=== PATIENT | male | born 1975 | race Hispanic/Latino ===

== ENCOUNTER 2024-04-24 20:07 | Inpatient (IN) | payer OTHER ==
[~2024-04-24] VITALS: Ht 185.4 cm; Wt 87.1 kg
[2024-04-24] MEDS: ACETAMINOPHEN 500 MG TABLET PO ONE ×2 (20:32→22:41)
[2024-04-24] MEDS: LACTATED RINGERS 1000ML 2,397 ML IV ONE (20:33)
[2024-04-24 20:37] LABS: RAPID GROUP A STREP negative (NEGATIVE)
[2024-04-24 20:39] LABS: BASOPHILS # (AUTO) 0.03 K/uL (0.00-0.20); BASOPHILS % (AUTO) 0.2 % (0.0-5.0); HEMATOCRIT 44.5 % (42-54); IMMATURE GRANULOCYTE ABSOLUTE 0.07 K/uL (0-1); LYMPHOCYTES # (AUTO) 1.7 K/uL (1.0-4.8); LYMPHOCYTES % (AUTO) 9.8 % (21.0-51.0); MEAN CORPUSCULAR HEMOGLOBIN 33.7 pg (27.0-33.0); MEAN CORPUSCULAR HGB CONC 37.1 g/dL (32.0-36.0); MEAN CORPUSCULAR VOLUME 90.8 fL (79-99); MONOCYTES # (AUTO) 1.5 K/uL (0.1-1.0); MONOCYTES % (AUTO) 8.4 % (3.0-13.0); NEUTROPHILS # (AUTO) 14.4 K/uL (1.8-7.7); NEUTROPHILS % (AUTO) 81.2 % (40.0-77.0); PLATELET COUNT (AUTO) 159 K/uL (130-400); RED CELL DISTRIBUTION WIDTH 13.1 % (11.0-15.5); WHITE BLOOD COUNT (AUTO) 17.8 K/uL (4.8-10.8)
[2024-04-24 20:46] LABS: COVID19 (SARS ANTIGEN RAPID) PRESUMPTIVE NEGATIVE (NEGATIVE)
[2024-04-24 20:47] LABS: INFLUENZA TYPE A Negative For Type A (NEGATIVE); INFLUENZA TYPE B Negative For Type B (NEGATIVE)
[2024-04-24] MEDS: CEFTRIAXONE 1G VIAL IVPB ONE (20:49)
[2024-04-24 20:52] LABS: INR 1.02 (0.85-1.15)
[2024-04-24 20:53] LABS: PARTIAL THROMBOPLASTIN TIME 33.9 SEC (26.3-35.5)
[2024-04-24 21:13] LABS: ALBUMIN 3.3 g/dL (3.5-5.0); BILIRUBIN,DIRECT 0.4 mg/dL (0.0-0.3)
[2024-04-24 21:15] LABS: POTASSIUM 2.8 mmol/L (3.5-5.1)
[2024-04-24] MEDS: KCL 20 MEQ ERTAB PO SCH (21:35)
[2024-04-24] MEDS: KCL 20 MEQ ERTAB PO ONE (21:35)
[2024-04-24 21:47] LABS: APPEARANCE,URINE CLEAR (CLEAR); BILIRUBIN,URINE NEGATIVE (NEGATIVE); COLOR,URINE YELLOW (YELLOW); GLUCOSE, URINE (UA) NEGATIVE (NEGATIVE); KETONES,URINE NEGATIVE (NEGATIVE); LEUKOCYTE ESTERASE ,URINE NEGATIVE Leu/uL (NEGATIVE); NITRATE,URINE NEGATIVE (NEGATIVE); OCCULT BLOOD,URINE SMALL (NEGATIVE); PROTEIN,URINE 30 mg/dL (NEGATIVE); UROBILINOGEN,URINE 0.2 mg/dL (0.2-1.0)
[2024-04-24] MEDS: MORPHINE 2 MG SYG IVP ONE (21:48)
[2024-04-24] MEDS: VANCOMYCIN KIT 1 GM/250 ML IV.KIT IV ONE (21:48)
[2024-04-24 21:50] LABS: ADD UA MICROSCOPIC YES
[2024-04-24 21:52] LABS: MUCUS,URINE RARE LPF (None Seen); WBC,URINE 0-1 /HPF (0-1)
[2024-04-24 21:53] LABS: AMPHET/METH SCREEN,URINE NEGATIVE (NEGATIVE); BARBITURATE SCREEN, URINE NEGATIVE (NEGATIVE); BENZODIAZEPINES SCREEN,URINE NEGATIVE (NEGATIVE); CANNABINOID SCREEN,URINE NEGATIVE (NEGATIVE); COCAINE SCREEN,URINE POSITIVE (NEGATIVE); OPIATE SCREEN,URINE NEGATIVE (NEGATIVE); PHENCYCLIDINE SCREEN,URINE NEGATIVE (NEGATIVE)
[2024-04-24] MEDS ORDERED: LOSA50TA64 PO (22:06)
[2024-04-24 22:40] VITALS: BP 150/99; PULSE 76; RESP 20; O2SAT 100
[2024-04-24] MEDS ORDERED: DiphenhydrAMINE HCL 50 MG/ML VIAL IV PRN (23:30)
[2024-04-24] MEDS ORDERED: FAMOTIDINE 20MG VIAL IV PRN (23:30)
[2024-04-24] MEDS ORDERED: DEXTROSE 50%-WATER 50 ML DISP.SYRIN IV PRN (23:30)
[2024-04-24] MEDS ORDERED: ACETAMINOPHEN 325 MG TAB PO PRN (23:30)
[2024-04-24] MEDS ORDERED: GUAIFENESIN-DM 200/20 MG 10 ML PO PRN (23:30)
[2024-04-24] MEDS ORDERED: LACTULOSE 20 GM/30 ML UDCUP PO PRN (23:30)
[2024-04-24] MEDS ORDERED: ZOLPIDEM TARTRATE 5 MG TAB PO PRN (23:30)
[2024-04-24] MEDS ORDERED: GLUCAGON 1MG KIT 1 MG ML IM PRN (23:30)
[2024-04-24] MEDS ORDERED: NITROGLYCERIN 0.4 MG SL TAB SL PRN (23:30)
[2024-04-24] MEDS ORDERED: POTASSIUM CHLORIDE 10% ELIXIR 20 MEQ/15 ML UDCUP PO PRN (23:30)
[2024-04-24] MEDS ORDERED: VANCOMYCIN PROTOCOL PER PHARMACY IV PRN (23:30)
[2024-04-25] VITALS (10 sets, daily range): BP systolic 133–167; BP diastolic 65–101; PULSE 68–93; RESP 16–20; TEMP 100.1; O2SAT 98
[2024-04-25] MEDS: 0.9%NACL 1000ML 1,000 ML IV SCH (00:11)
[2024-04-25] MEDS ORDERED: LORAZEPAM 2 MG/ML 1 ML VIAL IVP PRN ×2 (00:30)
[2024-04-25] MEDS ORDERED: PHARMACY COMMUNICATION MISC PRN (00:30)
[2024-04-25] MEDS ORDERED: PROMETHAZINE HCL 25 MG TABLET PO PRN (00:30)
[2024-04-25] MEDS: VANCOMYCIN 500MG+NS 100ML 100 ML IV ONE (00:49)
[2024-04-25] MEDS: ONDANSETRON 4MG INJ IV PRN (03:52)
[2024-04-25] MEDS: ACETAMINOPHEN 325 MG TAB PO PRN (03:52)
[2024-04-25] MEDS: MORPHINE 2 MG SYG IVP PRN (03:53)
[2024-04-25 04:31] LABS: BASOPHILS # (AUTO) 0.03 K/uL (0.00-0.20); BASOPHILS % (AUTO) 0.2 % (0.0-5.0); HEMATOCRIT 39.8 % (42-54); IMMATURE GRANULOCYTE ABSOLUTE 0.08 K/uL (0-1); LYMPHOCYTES # (AUTO) 1.2 K/uL (1.0-4.8); LYMPHOCYTES % (AUTO) 7.3 % (21.0-51.0); MEAN CORPUSCULAR HEMOGLOBIN 33.7 pg (27.0-33.0); MEAN CORPUSCULAR HGB CONC 37.9 g/dL (32.0-36.0); MEAN CORPUSCULAR VOLUME 88.8 fL (79-99); MONOCYTES # (AUTO) 1.4 K/uL (0.1-1.0); MONOCYTES % (AUTO) 8.2 % (3.0-13.0); NEUTROPHILS # (AUTO) 14.2 K/uL (1.8-7.7); NEUTROPHILS % (AUTO) 83.8 % (40.0-77.0); PLATELET COUNT (AUTO) 139 K/uL (130-400); RED BLOOD CELL COUNT(AUTO) 4.48 MIL/uL (4.50-6.20); RED CELL DISTRIBUTION WIDTH 13.1 % (11.0-15.5)
[2024-04-25 04:51] LABS: ALANINE AMINOTRANSFERASE 31 U/L (12-78); ALBUMIN 2.7 g/dL (3.5-5.0); ASPARTATE AMINOTRANSFERASE 32 U/L (10-37); BILIRUBIN,DIRECT 0.6 mg/dL (0.0-0.3); BILIRUBIN,TOTAL 1.5 mg/dL (0.2-1.0); CARBON DIOXIDE 27 mmol/L (21-32); CHLORIDE 98 mmol/L (101-111); CREATINE KINASE, TOTAL 317 U/L (21-232); CREATININE 1.1 mg/dL (0.5-1.3); GLOMERULAR FILTR. RATE CALC 83 mL/min (>90); GLUCOSE,RANDOM 127 mg/dL (70-105); SODIUM SERUM 133 mmol/L (136-145); TOTAL PROTEIN, SERUM 6.7 g/dL (6.0-8.3); UREA NITROGEN, BLOOD 13 mg/dL (7-18)
[2024-04-25] MEDS: ZOSYN 3.375GM+NS 50ML 50 ML IV SCH (04:59)
[2024-04-25 05:01] LABS: AMMONIA < 10 umol/L (11-32)
[2024-04-25 05:02] LABS: HEMOGLOBIN A1C 5.2 % (4.0-6.0); POTASSIUM 2.8 mmol/L (3.5-5.1)
[2024-04-25] MEDS: POTASSIUM CHLORIDE 20MEQ/10ML 20 MEQ in 0.9%NACL 1000ML 990 ML IV SCH (06:00)
[2024-04-25] MEDS: INSULIN HUMULIN R 100 UNIT/ML 3ML SQ SCH (07:30)
[2024-04-25] MEDS: NS-20 MEQ KCL 1000ML 1,000 ML IV ONE (07:31)
[2024-04-25] MEDS ORDERED: KCL 20 MEQ ERTAB PO SCH (09:00)
[2024-04-25] MEDS ORDERED: FAMOTIDINE 20MG VIAL IV SCH (09:00)
[2024-04-25] MEDS: LOSARTAN 50 MG TABLET PO SCH (09:54)
[2024-04-25] MEDS: MULTIVITAMIN TABLET PO SCH (09:54)
[2024-04-25] MEDS: FOLIC ACID 1 MG TABLET PO SCH (09:54)
[2024-04-25] MEDS: HEPARIN 5,000 UNIT VIAL SQ SCH (10:01)
[2024-04-25] MEDS: VANCOMYCIN 1.25 GM/250 ML BAG 250 ML IV SCH (11:23)
[2024-04-25] MEDS: KETOROLAC 15MG/ML VIAL (15MG/ML) IV PRN (11:24)
[2024-04-25] MEDS: NS-20 MEQ KCL 1000ML 1,000 ML IV SCH (11:28)
[2024-04-25] MEDS: DOXYCYCLINE 100MG+NS 250ML 250 ML IV SCH (15:41)
[2024-04-25] MEDS: POTASSIUM CHLORIDE 10MEQ/100ML 100 ML IV PRN (18:17)
[2024-04-25] MEDS: MAGNESIUM 2GM PREMIX 50ML 50 ML IV PRN (18:18)
[2024-04-25 18:51] LABS: MAGNESIUM 1.3 mg/dL (1.80-2.40); POTASSIUM 3.7 mmol/L (3.5-5.1)
[2024-04-26] VITALS (11 sets, daily range): BP systolic 132–156; BP diastolic 59–108; PULSE 63–101; RESP 16–20; O2SAT 98–99
[2024-04-26] MEDS: ACETAMINOPHEN 325 MG TAB PO PRN (03:52)
[2024-04-26] MEDS: HYDRALAZINE 20MG/ML VIAL IV PRN (03:53)
[2024-04-26 05:36] LABS: HEMATOCRIT 39.1 % (42-54); MEAN CORPUSCULAR HGB CONC 37.6 g/dL (32.0-36.0); MEAN CORPUSCULAR VOLUME 90.5 fL (79-99); RED BLOOD CELL COUNT(AUTO) 4.32 MIL/uL (4.50-6.20); RED CELL DISTRIBUTION WIDTH 12.7 % (11.0-15.5); WHITE BLOOD COUNT (AUTO) 9.8 K/uL (4.8-10.8)
[2024-04-26 05:59] LABS: ALBUMIN 2.6 g/dL (3.5-5.0); BILIRUBIN,TOTAL 1.1 mg/dL (0.2-1.0); POTASSIUM 3.1 mmol/L (3.5-5.1); TOTAL PROTEIN, SERUM 6.7 g/dL (6.0-8.3)
[2024-04-26] MEDS: KCL 20 MEQ ERTAB PO PRN (09:14)
[2024-04-26] MEDS ORDERED: MAGNESIUM 2GM PREMIX 50ML 50 ML IV PRN (14:30)
[2024-04-26] MEDS ORDERED: POTASSIUM CHLORIDE 10% ELIXIR 20 MEQ/15 ML UDCUP PO PRN (14:30)
[2024-04-26] MEDS ORDERED: POTASSIUM CHLORIDE 20MEQ/100ML 100 ML IV PRN (14:30)
[2024-04-26] MEDS ORDERED: KCL 20 MEQ ERTAB PO PRN (14:30)
[2024-04-26] MEDS: IPRATROPIUM/ALBUTEROL SULFATE 3 ML SOLUTION IH ONE (14:47)
[2024-04-26] MEDS: SODIUM CHLORIDE 3% FOR INHALATION 4 ML/AMP VIAL.NEB IH ONE ×2 (15:19→18:34)
[2024-04-26] MEDS ORDERED: IPRATROPIUM/ALBUTEROL SULFATE 3 ML SOLUTION IH SCH (16:00)
[2024-04-26] MEDS: SOLU-MEDROL 40MG VIAL IVP SCH (16:37)
[2024-04-26] MEDS: IPRATROPIUM/ALBUTEROL SULFATE 3 ML SOLUTION IH SCH (18:34)
[2024-04-26] MEDS: MONTELUKAST SODIUM 10 MG TAB PO SCH (20:09)
[2024-04-26] MEDS: FLUTICASONE/VILANTEROL 1 EACH AER.POW.BA IH SCH (20:11)
[2024-04-27] VITALS (16 sets, daily range): BP systolic 129–167; BP diastolic 79–95; PULSE 72–85; RESP 16–20; O2SAT 98–100
[2024-04-27 05:29] LABS: CREATININE 0.9 mg/dL (0.5-1.3); POTASSIUM 4.1 mmol/L (3.5-5.1)
[2024-04-27] MEDS: MAG/ALUM/SIMETH 30 ML UDCUP PO PRN (22:38)
[2024-04-28] VITALS (9 sets, daily range): BP systolic 132–146; BP diastolic 89–100; PULSE 71–88; RESP 18; O2SAT 98–99
[2024-04-28 05:30] LABS: BASOPHILS # (AUTO) 0.02 K/uL (0.00-0.20); BASOPHILS % (AUTO) 0.2 % (0.0-5.0); IMMATURE GRANULOCYTE ABSOLUTE 0.18 K/uL (0-1); LYMPHOCYTES # (AUTO) 0.6 K/uL (1.0-4.8); LYMPHOCYTES % (AUTO) 4.2 % (21.0-51.0); MEAN CORPUSCULAR HEMOGLOBIN 33.1 pg (27.0-33.0); MEAN CORPUSCULAR HGB CONC 36.4 g/dL (32.0-36.0); MEAN CORPUSCULAR VOLUME 90.9 fL (79-99); MONOCYTES # (AUTO) 0.6 K/uL (0.1-1.0); MONOCYTES % (AUTO) 4.7 % (3.0-13.0); NEUTROPHILS # (AUTO) 11.6 K/uL (1.8-7.7); NEUTROPHILS % (AUTO) 89.5 % (40.0-77.0); PLATELET COUNT (AUTO) 178 K/uL (130-400); RED BLOOD CELL COUNT(AUTO) 3.96 MIL/uL (4.50-6.20); RED CELL DISTRIBUTION WIDTH 13.5 % (11.0-15.5)
[2024-04-28 05:36] LABS: CREATININE 0.9 mg/dL (0.5-1.3); POTASSIUM 3.2 mmol/L (3.5-5.1)
[2024-04-28] MEDS ORDERED: MONT-46 PO (13:32)
[2024-04-28] MEDS ORDERED: AMOX-426 PO (15:41)
[2024-04-28] MEDS ORDERED: DOXY100T2 PO (15:41)
== END 2024-04-28 16:35 | disposition home or self-care (01) | DRG 871 ==
LOC: EDH 20:07 → EDHIP 20:08 → 3DH 22:40 → EDH 22:44
PROVIDERS: ADMIT Hospitalist; ATTEND Hospitalist
DX: A41.9 Sepsis, unspecified organism (principal); J18.9 Pneumonia, unspecified organism; E87.1 Hypo-osmolality and hyponatremia; M62.82 Rhabdomyolysis; Z20.822 Contact with and (suspected) exposure to COVID-19; E87.6 Hypokalemia; W18.30XA Fall on same level, unspecified, initial encounter; F14.10 Cocaine abuse, uncomplicated; I10 Essential (primary) hypertension; E66.9 Obesity, unspecified; F17.210 Nicotine dependence, cigarettes, uncomplicated; Z88.5 Allergy status to narcotic agent; Y93.89 Activity, other specified; Y92.89 Other specified places as the place of occurrence of the external cause; Y99.8 Other external cause status; Z82.49 Family history of ischemic heart disease and other diseases of the circulatory system; Z68.25 Body mass index [BMI] 25.0-25.9, adult
CPT/HCPCS: 36415; 70450; 70544; 70553; 71045; 71250; 80048; 80053; 80076; 80202; 80305; 81001; 82140; 82550; 82948; 83036; 83605; 83735; 83880; 84132; 84145; 84484; 85025; 85027; 85378; 85610; 85730; 87040; 87071; 87086; 87205; 87426; 87804; 87880; 93005; 93306; 93356; 94640; 94664; 96365; 96375; G0378; J0360; J0696; J1644; J1885; J2270; J2405; J2543; J2919; J3370; J3475; J3480; J3490; J7030; J7120; 3370; G8980-CI; G8983-CI

== ENCOUNTER 2024-07-07 05:40 | Emergency (ER) | payer SELFPAY ==
[~2024-07-07] VITALS: Ht 185.4 cm; Wt 82.1 kg
[~2024-07-07 05:40] MED LIST: AMOX-426 PO; DOXY100T2 PO; LOSA50TA64 PO; MONT-46 PO
[2024-07-07] MEDS: PANTOPrazole 40 MG/VIAL IVP ONE (06:15)
[2024-07-07] MEDS: ondanSETRON 4MG INJ IVP ONE (06:15)
[2024-07-07 06:20] LABS: BASOPHILS # (AUTO) 0.02 K/uL (0.00-0.20); BASOPHILS % (AUTO) 0.2 % (0.0-5.0); EOSINOPHILS # (AUTO) 0.14 K/uL (0.00-0.70); EOSINOPHILS % (AUTO) 1.7 % (0.0-8.0); HEMATOCRIT 44.9 % (42-54); IMMATURE GRANULOCYTE ABSOLUTE 0.01 K/uL (0-1); LYMPHOCYTES # (AUTO) 3.5 K/uL (1.0-4.8); LYMPHOCYTES % (AUTO) 41.5 % (21.0-51.0); MEAN CORPUSCULAR HGB CONC 36.5 g/dL (32.0-36.0); MONOCYTES # (AUTO) 0.5 K/uL (0.1-1.0); MONOCYTES % (AUTO) 6.3 % (3.0-13.0); NEUTROPHILS # (AUTO) 4.2 K/uL (1.8-7.7); NEUTROPHILS % (AUTO) 50.2 % (40.0-77.0); PLATELET COUNT (AUTO) 249 K/uL (130-400); RED BLOOD CELL COUNT(AUTO) 4.83 MIL/uL (4.50-6.20); RED CELL DISTRIBUTION WIDTH 13.5 % (11.0-15.5); WHITE BLOOD COUNT (AUTO) 8.5 K/uL (4.8-10.8)
[2024-07-07] MEDS: MAG/ALUM/SIMETH 30 ML UDCUP PO ONE (06:21)
[2024-07-07] MEDS: LACTATED RINGERS 1000ML 1,000 ML IV ONE (06:21)
[2024-07-07] MEDS: LIDOCAINE HCL 2% VISCOUS 15 ML UDCUP PO ONE (06:21)
[2024-07-07 06:34] LABS: INR 1.03 (0.85-1.15); PROTHROMBIN TIME 11.1 SEC (9.6-11.6)
[2024-07-07 07:23] LABS: APPEARANCE,URINE CLEAR (CLEAR); BILIRUBIN,URINE NEGATIVE (NEGATIVE); COLOR,URINE LIGHT-YELLOW (YELLOW); GLUCOSE, URINE (UA) NEGATIVE (NEGATIVE); KETONES,URINE NEGATIVE (NEGATIVE); LEUKOCYTE ESTERASE ,URINE NEGATIVE Leu/uL (NEGATIVE); NITRATE,URINE NEGATIVE (NEGATIVE); PROTEIN,URINE NEGATIVE (NEGATIVE); UROBILINOGEN,URINE 0.2 mg/dL (0.2-1.0)
[2024-07-07 07:26] LABS: ADD UA MICROSCOPIC YES
[2024-07-07] MEDS: PoTASSium chloRIDE 20MEQ ER 20 MEQ ERTAB PO ONE (07:51)
[2024-07-07 10:41] VITALS: BP 127/89; PULSE 74; RESP 16; TEMP 97.7; O2SAT 99
== END 2024-07-07 11:14 | disposition home or self-care (01) ==
LOC: EDH 05:40
DX: R13.10 Dysphagia, unspecified (principal); I10 Essential (primary) hypertension; Z79.899 Other long term (current) drug therapy; Z88.5 Allergy status to narcotic agent; Z98.890 Other specified postprocedural states
CPT/HCPCS: 99285; 96374; 71045; 96375; 82550; 84484; 80048; 85025; 85610; 81001; 36415; 74018; 93005; J7120; J2405; J2470